=== PATIENT | female | born 1950 | race Caucasian/White ===

== ENCOUNTER 2018-04-20 13:26 | Outpatient (CLI) | payer MEDICARE ==
[~2018-04-20 13:26] MED LIST: Iopamidol 370 76% 100 ML VIAL ONE
== END 2018-04-20 13:27 | disposition home or self-care (01) ==
LOC: BICCT 13:26
PROVIDERS: ATTEND Urology
DX: R31.9 Hematuria, unspecified (principal); E11.9 Type 2 diabetes mellitus without complications; N20.0 Calculus of kidney
CPT/HCPCS: 74178

== ENCOUNTER 2018-07-20 10:26 | Outpatient (CLI) | payer MEDICARE ==
--- NOTE | 2018-07-20 11:17 | RAD ---
CERVICAL SPINE FOUR VIEWS: History: Neck pain. Comparison: 06-27-18 FINDINGS: Reversal of the normal lordotic curvature. Prominent osteophytosis. Disc space narrowing and 4 mm ret rolisthesis at the C5-6 level that does not change upon flexion or extension. Cervicothoracic junctio n is intact. IMPRESSION: Degenerative changes most pronounced at the C5-6 level. POS: [facility]
== END 2018-07-20 10:27 | disposition home or self-care (01) ==
LOC: TBSIIMAG 10:26
PROVIDERS: ATTEND Neurological Surgery
DX: M47.22 Other spondylosis with radiculopathy, cervical region (principal); M50.20 Other cervical disc displacement, unspecified cervical region
CPT/HCPCS: 72040

== ENCOUNTER 2018-07-25 05:30 | Day surgery (SDC) | payer MEDICARE ==
[2018-07-21 13:27] VITALS: BMI 31.6
[2018-07-25] MEDS ORDERED: Famotidine/PF 20 mg/2ml Vial ONE (06:15)
[2018-07-25] MEDS ORDERED: Scopolamine 1.5 mg/72 hour Patch ONE (06:16)
[2018-07-25] MEDS ORDERED: Fentanyl 100 MCG/2 ML VIAL ONE ×4 (06:16→10:41)
[2018-07-25] MEDS ORDERED: Midazolam HCl 2 mg/2 ml Vial ONE (06:16)
[2018-07-25] MEDS ORDERED: Thrombin 5000 UNITS/5 ML VIAL ONE (06:18)
[2018-07-25] MEDS ORDERED: Sodium Chloride 0.9% 10 ML ONE (06:18)
[2018-07-25] MEDS ORDERED: CEFAZOLIN 2 GM/50 ML BAG ONE ×2 (06:25→14:49)
--- NOTE | 2018-07-25 07:14 | HP ---
HISTORY OF PRESENT ILLNESS: This is a 67-year-old female who reports to our office for evaluation of neck pain with radicular symptoms. The patient states she has had a similar experience with right-sided radiculopathy in 1998 for which a foraminotomy was performed and gave her instant relief. The patient states that she feels like she has a blowtorch on her left arm. It goes from her neck behind her shoulder blade down the back of her arm to the top of her wrist. The patient states that her hand will go numb and tingly sometimes. She states the flare-ups like this happens 3 or 4 times a year, however, this is the most significant episode which started this past July. The patient states that nothing has helped her. She needs to have her head flexed forward to give any amount or relief from the pain. She has seen a massage therapist, chiropractor, and received pain medications all with little benefit, muscle relaxers, pain killers, and steroids as well. REVIEW OF SYSTEMS: A 10-point review of systems has been completed and is negative other than stated above in the HPI. PAST MEDICAL HISTORY: Diabetes type 1, skin cancer, hyperlipidemia, migraine, history of hepatitis. SURGICAL HISTORY: TVH/ ,10-pound fibroid in 2005, right hip surgery replacement in 2008, multiple neck surgeries, removal of gallbladder, cervical laminectomy in 1998. FAMILY HISTORY: Father was at 80 from lung cancer, diagnosed with heart disease and cancer. Mother was at 64 of renal cell cancer diagnosed with cancer. Children are alive. Son is alive and paternal grandfather , grandmother .. SOCIAL HISTORY: The patient is a nonsmoker and drinks alcohol occasionally. Does not use any other illicit drugs. Currently sexually active. Retired, , with 4 children. Drinks a cup of coffee a day. MEDICATIONS: Metformin, Humalog, [place] and Zofran. ALLERGIES: NO KNOWN DRUG ALLERGIES. PHYSICAL EXAMINATION: CONSTITUTIONAL: The patient is alert and oriented, does not appear to be in visible distress. HEENT: Head is normocephalic and atraumatic. Pupils are equal, round, reactive to light. Extraocular movements are intact. Hearing is intact. NECK: Soft and supple. No masses are noted. Range of motion is intact, worse with extension, tenderness in the back. NEUROLOGIC: Awake, alert, and oriented x3. Memory, attention, and fund of knowledge and language are normal. Speech is spontaneous. Cranial nerves are normal. Cranial nerves are grossly intact. EXTREMITIES: Upper extremities 5/5 strength in bilateral deltoids, biceps, wrist extensors, finger extensors, finger intrinsic and 4+/5 left triceps. Positive Spurling's on the left. Reflexes are symmetric. ASSESSMENT AND PLAN: Cervical disk disease. Dr. Rogers has offered anterior cervical discectomy and fusion. She has consented to the risks and benefits and is willing to proceed with surgery. Job ID: [id number]
[2018-07-25] MEDS ORDERED: Morphine 2 MG/ML SYRINGE ONE ×2 (11:42→11:48)
[2018-07-25] MEDS ORDERED: tiZANidine HCl 4 MG TAB ONE (12:16)
--- NOTE | 2018-07-25 12:32 | OP ---
DATE OF PROCEDURE: 07/25/2018 FAN RUNNER: Jadyn Pollard PA-C PREOPERATIVE INDICATION: Treat pain and prevent neurological deterioration. PREOPERATIVE DIAGNOSES: Left C6 radiculopathy from intervertebral disk disease and foraminal stenosis at C5-C6. POSTOPERATIVE DIAGNOSES: Left C6 radiculopathy from intervertebral disk disease and foraminal stenosis at C5-C6. PROCEDURES PERFORMED: Anterior cervical diskectomy, intervertebral arthrodesis, placement of intervertebral biomechanical device, local morselized autograft, morselized allograft, anterior cervical plating C5-C6, and operating microscope. PREOPERATIVE MEDICATIONS: Ancef 2 g IV. DRAINS: Zero. DRAIN TYPE: None. DESCRIPTION OF PROCEDURE: The patient was brought to the operating room. General endotracheal anesthesia was induced. The patient was carefully positioned supine with the head supported by a donut-shaped headrest. A lateral fluoro- radiograph was used to plan our incision. The right side of the neck was sterilely prepped and draped. We opened with a 10-blade knife and controlled bleeding with bipolar cautery. We dissected sharply to the platysma and then cut this muscle in line with our incision. We continued our dissection medial to the sternocleidomastoid and lateral to the trachea and esophagus all the way down to the prevertebral space. We placed a marker at C4-C5 and took a lateral fluoro-radiograph to confirm the levels upon which we were operating. We then counted down from there and elevated the longus colli muscles off the anterior surface of C5 and C6 and placed distraction pins in both of those vertebrae and a lateral retractor under the muscles. We incised the interspaces and removed disk contents using curettes and rongeurs. As we approached the posterior longitudinal ligament, the operating microscope was brought into the field. Under microscopic magnification and using microsurgical techniques, we removed the remainder of the intervertebral disk, the posterior longitudinal ligament, and posterior osteophytes across the entire interspace. We decompressed both neural foramina, especially the left side, where the nerve was reddened and compressed. At the completion of our decompression, there was no further neural element entrapment. We prepared the endplates for grafting with curettes and then measured the height of the interspace to 7 mm. A 7 mm PEEK graft was brought into the field. Posterior osteophytes and anterior osteophytes removed during decompression, and we carefully cleaned of soft tissue attachments, morselized, and added to demineralized bone matrix as our fusion substrate. The substrate was packed into the PEEK graft and then the graft advanced into the interspace under radiographic guidance to the appropriate depth. We then removed the operating microscope. A 14-mm anterior cervical plate was brought into the field. We drilled airplane pilot commercial holes through the plate into the vertebral bodies at C5 and C6 and affixed the plate using 14 mm screws. Fixed angle screws were used at C6 and variable angle screws at C5. We engaged the locking mechanism over each of the 4 screws. AP and lateral fluoro-radiographs confirmed adequate positioning of our instrumentation. We irrigated copiously with bacitracin irrigation. We closed the wound in anatomical layers and we applied a sterile dressing. This was a clean case with no contamination. Job ID: [id number] [facility]
[2018-07-25] MEDS ORDERED: HYDROcodone/Acetaminophen 10/325 mg Tablet ONE (12:34)
[2018-07-25] MEDS ORDERED: diphenhydrAMINE 50 MG/ML VIAL ONE (13:27)
[2018-07-25] MEDS ORDERED: Sodium Chloride 0.9% 100 ML ONE (14:54)
[2018-07-25] MEDS ORDERED: CEFAZOLIN 1 GM VIAL ONE (14:54)
--- NOTE | 2018-07-25 17:53 | EKG ---
Test Reason : PREOP Blood Pressure : / mmHG Vent. Rate : 106 BPM Atrial Rate : 106 BPM P-R Int : 160 ms QRS Dur : 088 ms QT Int : 348 ms P-R-T Axes : 054 -03 060 degrees QTc Int : 462 ms Sinus tachycardia Low voltage QRS Borderline ECG No previous ECGs available Confirmed by QUIQUE MCCULLOUGH ([id number]) on 07/25/2018 5:53:02 PM Referred By: KORY Confirmed By:QUIQUE MCCULLOUGH
== END 2018-07-25 15:35 | disposition home or self-care (01) ==
LOC: SDC 05:30
PROVIDERS: ATTEND Neurological Surgery
PROC: 0RG10A0 Fusion of Cervical Vertebral Joint with Interbody Fusion Device, Anterior Approach, Anterior Column, Open Approach (ICD-10-PCS; principal; 2018-07-25)
PROC: 0RT30ZZ Resection of Cervical Vertebral Disc, Open Approach (ICD-10-PCS; 2018-07-25)
DX: M50.122 Cervical disc disorder at C5-C6 level with radiculopathy (principal); M43.12 Spondylolisthesis, cervical region; M48.061 Spinal stenosis, lumbar region without neurogenic claudication; E11.9 Type 2 diabetes mellitus without complications; E78.5 Hyperlipidemia, unspecified; G43.909 Migraine, unspecified, not intractable, without status migrainosus; Z79.4 Long term (current) use of insulin; Z79.82 Long term (current) use of aspirin; Z79.899 Other long term (current) drug therapy
CPT/HCPCS: 36416; 76001; 93005; 93010; 96374; 96375; C1713; C1776; J0690; J1200; J2001; J2250; J2270; J2405; J2704; J3010; J3490; J7050; L0174; S0028

== ENCOUNTER 2018-08-18 11:53 | Outpatient (CLI) | payer MEDICARE ==
--- NOTE | 2018-08-18 13:30 | RAD ---
KUB: Comparison: None. History: Renal calculi. FINDINGS: Single view of the abdomen shows a nonspecific, nonobstructed bowel gas pattern. There is a 13 mm yanna cification projecting over the mid to upper portion of the right kidney. No calcification projects ov er the left renal shadow or along the course of the ureters. Phleboliths are seen in the pelvis. IMPRESSION: Right nephrolithiasis. POS: [facility]
== END 2018-08-18 11:54 | disposition home or self-care (01) ==
LOC: RAD 11:53
PROVIDERS: ATTEND Urology
DX: N20.0 Calculus of kidney (principal)
CPT/HCPCS: 74018

== ENCOUNTER 2018-09-18 13:00 | Outpatient (CLI) | payer MEDICARE ==
--- NOTE | 2018-09-18 14:12 | RAD ---
THREE VIEWS CERVICAL SPINE: Comparison: 07-20-18 History: Cervical radiculopathy. FINDINGS: Three views of the cervical spine shows the patient to be status post anterior fusion of C5 and C6 wi th a plate and screws. Disc spacer is seen within the disc space. No perihardware lucency is seen. Ve rtebral bodies demonstrate normal alignment without subluxation. Small osteophytes are seen surroundi ng the C4-5 intervertebral disc. IMPRESSION: Post-surgical changes of the cervical spine without evidence of complication. POS: [facility]
--- NOTE | 2018-09-18 15:50 | RAD ---
LUMBAR SPINE RADIOGRAPHS 2 VIEWS: DATE: 09/18/2018. PROVIDED CLINICAL HISTORY: Back pain. FINDINGS: No comparisons. Five isq-fvf-srvsbh-type vertebral bodies are present. Lumbar alignment appears nor mal. Vertebral body heights appear preserved. Mild disk space narrowing at L3-4. Multilevel lower lumbar spine facet degenerative changes. Pedicles appear intact. Approximately 1.4 cm ovoid density overlies the inferior pole right renal shadow likely reflecting calculus. IMPRESSION: 1. Lower lumbar spine facet arthritis. 2. Right renal calculus. POS: [facility]
--- NOTE | 2018-09-18 15:56 | RAD ---
THREE VIEWS THORACIC SPINE: HISTORY: Fall with back pain. FINDINGS: AP, lateral, and swimmer's view thoracic spine demonstrate ACDF with lower cervical fusion involving the C5-6 level. Small anterior osteophytes are seen throughout the thoracic spine. Vertebral bodies were unremarkable. No evidence of acute thoracic spine fractures or bony lesions se en. IMPRESSION: Anterior thoracic spine osteophytes with no evidence of acute fractures or bony lesions seen. POS: [facility]
== END 2018-09-18 13:01 | disposition home or self-care (01) ==
LOC: TBSIIMAG 13:00
PROVIDERS: ATTEND Neurological Surgery
DX: S33.5XXA Sprain of ligaments of lumbar spine, initial encounter (principal); S23.3XXA Sprain of ligaments of thoracic spine, initial encounter; M54.12 Radiculopathy, cervical region; M47.816 Spondylosis without myelopathy or radiculopathy, lumbar region; N20.0 Calculus of kidney; Z98.890 Other specified postprocedural states
CPT/HCPCS: 72040; 72070; 72100

== ENCOUNTER 2018-12-26 12:59 | Outpatient (CLI) | payer MEDICARE ==
--- NOTE | 2018-12-26 14:24 | RAD ---
CERVICAL SPINE, FOUR VIEWS: 12/26/18 HISTORY: Cervical radiculopathy. COMPARISON: 09/18/18. Anterior plate and screws again noted transfixing C5-6 with interbody implant. Hardware is unchanged in position. Degenerative changes are noted. Anterior bridging osteophyte at C4-5 with mild loss of d isc space. Mild loss of disc space with anterior osteophyte at C6-7. These findings are all stable. P osterior alignment is unchanged. IMPRESSION: Postoperative and degenerative changes of the cervical spine appears stable from prior exam. POS: [facility]
== END 2018-12-26 13:00 | disposition home or self-care (01) ==
LOC: TBSIIMAG 12:59
PROVIDERS: ATTEND Neurological Surgery
DX: M47.26 Other spondylosis with radiculopathy, lumbar region (principal); Z98.890 Other specified postprocedural states
CPT/HCPCS: 72040

== ENCOUNTER 2019-03-19 09:41 | Outpatient (CLI) | payer MEDICARE ==
--- NOTE | 2019-03-19 10:21 | RAD ---
EXAM: XR Abdomen 1 View/KUB PROVIDED CLINICAL HISTORY: Nephrolithiasis. COMPARISON: 08/18/2018. FINDINGS: Surgical clips overlie the right upper quadrant. Previously noted calculus overlying the midportion right renal shadow is again seen measuring 16 mm o n today's exam suggesting right renal calculus. No suspicious calcifications are seen overlying the left renal shadow or along the expected courses of each ureter to suggest additional calculi. Phlebol iths overlie the pelvis. Nonspecific bowel gas pattern is present. Degenerative changes noted spine. Right total hip prosthesi s again present. IMPRESSION: Right nephrolithiasis.
== END 2019-03-19 09:42 | disposition home or self-care (01) ==
LOC: BICRAD 09:41
PROVIDERS: ATTEND Urology
DX: N20.0 Calculus of kidney (principal)
CPT/HCPCS: 36415; 74018; 80048; 80061; 80076; 81001; 87086

== ENCOUNTER 2019-05-29 09:17 | Outpatient (CLI) | payer MEDICARE ==
[2019-05-29 11:58] LABS: Hemoglobin 15.5 g/dL (12.0-16.0); Mean Corpuscular HGB CONC 32.5 g/dL (32.0-36.0); Mean Corpuscular Hemoglobin 29.8 pg (27.0-31.0); Mean Corpuscular Volume 91.5 fL (78.0-98.0); Mean Platelet Volume 7.5 fL (7.4-10.4); Platelet Count 302 thou/uL (130-400); RBC Distribution Width 12.8 % (11.5-14.5); Red Blood Cell (RBC) Count 5.21 mill/uL (4.20-5.40); White Blood Cell (WBC) Count 8.3 thou/uL (4.8-10.8)
[2019-05-29 12:02] LABS: Bacteria/HPF None Seen HPF (None Seen); Bilirubin Negative (Negative); Blood, Urine Trace (Negative); Clarity Clear (Clear); Glucose, Urine (Dipstick) 30 mg/dL (Negative); Leukocyte 250 Leu/uL (Negative); Mucous/LPF 1+ LPF (<2+); Nitrite Negative (Negative); PTT 29.1 SEC (22.9-36.1); Protein, Urine (Dipstick) 70 mg/dL (Neg-Trace); Prothrombin Time 12.9 SEC (12.0-14.7); Urobilinogen Normal mg/dL (Less than 2); WBC/HPF 21-50 HPF (0-3)
[2019-05-29 12:27] LABS: Anion Gap 13 mmol/L (10-20); BUN (Urea Nitrogen) 8 mg/dL (9.8-20.1); Calc. Creatinine Clearance 0 mL/min (70-130); Calcium 9.7 mg/dL (7.8-10.44); Carbon Dioxide 27 mmol/L (23-31); Chloride 102 mmol/L (98-107); Estimated GFR-MDRD 72; Glucose 159 mg/dL (80-115); Potassium 3.9 mmol/L (3.5-5.1); Sodium 138 mmol/L (136-145)
--- NOTE | 2019-06-01 10:09 | EKG ---
Test Reason : Blood Pressure : / mmHG Vent. Rate : 083 BPM Atrial Rate : 083 BPM P-R Int : 160 ms QRS Dur : 082 ms QT Int : 376 ms P-R-T Axes : 075 026 075 degrees QTc Int : 441 ms Normal sinus rhythm with sinus arrhythmia Low voltage QRS Borderline ECG When compared with ECG of 25-JUL-2018 06:37, No significant change was found Confirmed by GLENROY ROSAS, LORRI ([id number]) on 06/01/2019 10:08:34 AM Referred By: ONIEL Confirmed By:LORRI TIM MD
== END 2019-05-29 09:18 | disposition home or self-care (01) ==
LOC: LABBT 09:17
PROVIDERS: ATTEND Urology
DX: Z01.818 Encounter for other preprocedural examination (principal); N20.0 Calculus of kidney; N39.41 Urge incontinence; E11.65 Type 2 diabetes mellitus with hyperglycemia; R55 Syncope and collapse
CPT/HCPCS: 80048; 81001; 85027; 85610; 85730; 87086; 93005; 93010

== ENCOUNTER 2019-06-06 05:43 | Day surgery (SDC) | payer MEDICARE ==
[2019-05-29 09:53] VITALS: BMI 33.4
[2019-06-06] MEDS ORDERED: Levofloxacin 500 mg/D5W 100 ml Premix Bag ONE (06:16)
[2019-06-06] MEDS ORDERED: Midazolam HCl 2 mg/2 ml Vial ONE (07:12)
[2019-06-06] MEDS ORDERED: Fentanyl 100 MCG/2 ML VIAL ONE (07:12)
[2019-06-06] MEDS ORDERED: Iothalamate Meglumine 60% 50 ML VIAL FS ONE (07:15)
--- NOTE | 2019-06-06 08:14 | RAD ---
Exam: Intraprocedure fluoroscopy for retrograde IVP HISTORY: Stone manipulation. Right stent FINDINGS: 3 fluoroscopic views demonstrate calculus projecting over the right renal silhouette. Retro grade opacification the right intrarenal and extra renal collecting system. Wire for stent placement is identified on the last image. IMPRESSION: Intraprocedure fluoroscopy as above.
--- NOTE | 2019-06-06 09:33 | RAD ---
FRONTAL VIEW ABDOMEN: INDICATIONS: Preoperative evaluation. Nephrolithiasis. COMPARISON: Radiograph from 03/19/2019 and fluoroscopic imaging from 06/06/2019. FINDINGS: There is a moderate sized calcific density again seen overlying the right renal shadow. The finding i s grossly stable. The bowel gas pattern is non-obstructed. IMPRESSION: Persistent moderate sized calcification overlying the right renal shadow. POS: [facility]
[2019-06-06] MEDS ORDERED: Phenazopyridine HCl 97.5 MG TABLET ONE ×2 (09:35)
[2019-06-06] MEDS ORDERED: Oxybutynin 5 MG TAB ONE (09:36)
[2019-06-06] MEDS ORDERED: Promethazine HCl 25 MG/ML VIAL ONE (09:48)
--- NOTE | 2019-06-06 10:17 | OP ---
DATE OF PROCEDURE: 06/06/2019 PRIMARY CARE PHYSICIAN: Eleni Araujo MD PREOPERATIVE DIAGNOSIS: A 68-year-old female with history of 1.5 cm right upper pole stone. POSTOPERATIVE DIAGNOSIS: A 68-year-old female with history of 1.5 cm right upper pole stone. PROCEDURES PERFORMED: Cystoscopy, right retrograde pyelogram, dilation of right intramural ureter, 6 x 26 double-J ureteral stent with distal tail in situ, flexible ureteroscopy, pyeloscopy, laser lithotripsy of large right upper pole stone, basket extraction of stone fragments. ANESTHESIA: General. COMPLICATIONS: None apparent. ESTIMATED BLOOD LOSS: Minimal. IV FLUIDS: About 1 L. SPECIMENS: For stone analysis. INDICATION FOR PROCEDURE: Ms. Blackwell is a 68-year-old female, who presented for evaluation of history of microscopic hematuria. Workup demonstrated a large right upper pole renal stone measuring 1.5 x 1.0 cm with Hounsfield density over 1000. I discussed with the patient regarding various treatment options including ESWL, ureteroscopy, PCNL. She has chosen ureteroscopy, laser lithotripsy. Relative stone-free rates and risks and complications of each modality were reviewed. Possible secondary procedure was also reviewed given stone size, density, and moiety. DESCRIPTION OF PROCEDURE: After an informed consent was signed, the patient was taken to the operating room, placed in a dorsal lithotomy position with the genital area prepped and draped in the usual surgical sterile fashion. A 21-Welsh cystoscope was utilized for cystoscopy, which demonstrated normal urethra and bladder was unremarkable. The UOs identified in normal orthotopic position. We intubated the right UO with an open-ended catheter, and a retrograde pyelogram was performed demonstrating the stone in the right upper pole. At this time, a 0.35 Sensor wire was placed in the right upper pole and using a [employer] 12-Welsh 4 cm balloon dilator, we dilated the intramural ureter, and proximal ureter in 2 segments. This was performed under fluoroscopic guidance. After adequate dilatation, we passed a 10-Welsh dual-lumen access sheath, which was able to be passed into the right proximal ureter. A 0.35 Super Stiff wire was then placed into the right upper pole for working wire. With the safety wire secured, we passed an 11/13-Welsh x 28 cm navigator. We negotiated this carefully, atraumatically to the level of the proximal ureter, and subsequently, passed the flexible ureteroscope under guidewire assist. Surveying of the collecting system demonstrated a large right upper pole and using 250 micron ball-tip fiber at 1.0 joules, we laser lithotripsied the stone into multiple tiny fragments. It took some time, given stone size and density; however, the stone was dusted. We basket extracted some fragments to chemically analyze. At the end of the procedure, what remained was minute punctate stone debris that which she will most likely pass. We surveyed the collecting system demonstrating no further stone nidus, the ureter was surveyed which demonstrated no evidence of ureteral mucosa trauma. The navigator was completely removed and a 6 x 26 double-J ureteral stent was passed without difficulty. Distal tail was left in situ and all wires were removed. Bladder was completely emptied and she tolerated the procedure well. She will follow up with me next at 8 a.m. She is instructed to have KUB the day before June 13 at 9 a.m.; if no significant stone burden of concern, we will remove her stent the day after on . She is discharged with ciprofloxacin for course of 10 days, Azo p.r.n., Colace p.r.n., tramadol 50 mg #30, KUB and x-ray prescription orders provided. Job ID: [id number]
== END 2019-06-06 12:10 | disposition home or self-care (01) ==
LOC: SDC 05:43
PROVIDERS: ATTEND Urology
PROC: 0TF38ZZ Fragmentation in Right Kidney Pelvis, Via Natural or Artificial Opening Endoscopic (ICD-10-PCS; principal; 2019-06-06)
PROC: 0T768DZ Dilation of Right Ureter with Intraluminal Device, Via Natural or Artificial Opening Endoscopic (ICD-10-PCS; 2019-06-06)
DX: N20.0 Calculus of kidney (principal); E11.9 Type 2 diabetes mellitus without complications; G43.909 Migraine, unspecified, not intractable, without status migrainosus; N39.41 Urge incontinence; R55 Syncope and collapse; Z79.4 Long term (current) use of insulin; Z79.899 Other long term (current) drug therapy; Z98.1 Arthrodesis status
CPT/HCPCS: 36416; 74018; 74420; 82365; 88300; C1758; C1769; J1956; J2250; J2550; J3010

== ENCOUNTER 2019-06-13 11:32 | Outpatient (CLI) | payer MEDICARE ==
--- NOTE | 2019-06-13 11:59 | RAD ---
Exam: Abdomen one view: HISTORY: Nephrolithiasis COMPARISON: 06/06/2019 FINDINGS: Right ureteral stent in place. The previously noted right renal calculus is no longer evident. IMPRESSION: Right ureteral stent in place. Large right renal calculus seen on the prior study is no longer eviden t.
== END 2019-06-13 11:33 | disposition home or self-care (01) ==
LOC: BICRAD 11:32
PROVIDERS: ATTEND Urology
DX: N20.0 Calculus of kidney (principal); Z96.0 Presence of urogenital implants
CPT/HCPCS: 74018

== ENCOUNTER 2019-07-11 12:47 | Outpatient (CLI) | payer MEDICARE ==
--- NOTE | 2019-07-11 11:40 | MMO ---
Bilateral MAMMO Bilat Screen [facility]. CLINICAL HISTORY: Patient is 68 years old and is seen for screening. The patient has no family history of breast cancer. The patient has no personal history of cancer. VIEWS: The views performed were: bilateral craniocaudal with tomosynthesis and bilateral mediolateral oblique with tomosynthesis. This study has been interpreted with the assistance of computer-aided detection. MAMMOGRAM FINDINGS: There are scattered fibroglandular densities. There are benign appearing calcifications seen in both breasts. There are no suspicious masses, calcifications or areas of architectural distortion. There are no suspicious masses, suspicious calcifications, or new areas of architectural distortion. IMPRESSION: THERE IS NO MAMMOGRAPHIC EVIDENCE OF MALIGNANCY. A ROUTINE FOLLOW-UP MAMMOGRAM IN 1 YEAR IS RECOMMENDED. THE RESULTS OF THIS EXAM WERE SENT TO THE PATIENT. ACR BI-RADS Category 2 - Benign finding MAMMOGRAPHY NOTE: 1. A negative mammogram report should not delay a biopsy if a dominant of clinically suspicious mass is present. 2. Approximately 10% to 15% of breast cancers are not detected by mammography. 3. Adenosis and dense breasts may obscure an underlying neoplasm. Reported by: BARBARA YUAN MD Electonically Signed: [id number]
== END 2019-07-11 12:48 | disposition home or self-care (01) ==
LOC: BICMAMMO 12:47
PROVIDERS: ATTEND Family Medicine
DX: Z12.31 Encounter for screening mammogram for malignant neoplasm of breast (principal)
CPT/HCPCS: 77063; 77067

== ENCOUNTER 2019-09-20 08:15 | Outpatient (CLI) | payer MEDICARE ==
--- NOTE | 2019-09-20 09:08 | ULT ---
BILATERAL RENAL ULTRASOUND: Date: 09/20/2019 HISTORY: Renal calculus. FINDINGS: The right kidney measures 11.4 cm in length and the left kidney measures 11.1 cm in length. No focal mass or hydronephrosis is seen. No shadowing calculus identified. The urinary bladder is not visualiz ed, likely due to incomplete distention. IMPRESSION: No sonographic evidence of renal calculus or high grade obstruction. POS: [facility]
--- NOTE | 2019-09-20 09:09 | RAD ---
KUB: HISTORY: Kidney stones. COMPARISON: 06/13/2019 exam. The bowel gas pattern is nonobstructive. Right ureteral stent which was noted on the previous study has been removed. I do not appreciate any definite ureteral calculi. On one of these projections, t here is a suggestion of a faint calcification in the region of the lower pole of the right kidney. P ostop9 cholecystectomy changes are seen. IMPRESSION: Questionable small faint lower pole right renal calculus. POS: [facility]
== END 2019-09-20 08:16 | disposition home or self-care (01) ==
LOC: BICULT 08:15
PROVIDERS: ATTEND Urology
DX: N20.0 Calculus of kidney (principal)
CPT/HCPCS: 36415; 74018; 76770; 80048; 81001; 87086

== ENCOUNTER 2022-01-15 11:31 | Outpatient (CLI) | payer MEDICARE ==
[2022-01-15 13:26] LABS: Hemoglobin 14.5 g/dL (12.0-15.5); Mean Corpuscular HGB CONC 33.4 g/dL (32.0-36.0); Mean Corpuscular Hemoglobin 29.4 pg (27.0-33.0); Mean Corpuscular Volume 87.9 fl (81.6-98.3); Mean Platelet Volume 9.6 fl (7.4-10.4); Platelet Count 303 10x3/uL (150-450); RBC Distribution Width 13.9 % (11.5-14.5); Red Blood Cell (RBC) Count 4.94 10x6/uL (3.90-5.03); White Blood Cell (WBC) Count 7.4 10x3/uL (3.5-10.5)
[2022-01-15 13:38] LABS: Anion Gap 15 mmol/L (10-20); BUN (Urea Nitrogen) 10 mg/dL (9.8-20.1); Calc. Creatinine Clearance 0 mL/min (70-130); Calcium 9.4 mg/dL (7.8-10.44); Carbon Dioxide 27 mmol/L (23-31); Chloride 101 mmol/L (98-107); Glucose 184 mg/dL (83-110); Potassium 4.1 mmol/L (3.5-5.1); Sodium 139 mmol/L (136-145)
[2022-01-15 13:52] LABS: PTT 24.2 sec (22.0-33.0); Prothrombin Time 10.6 sec (9.5-12.1)
== END 2022-01-15 11:32 | disposition home or self-care (01) ==
LOC: LABBT 11:31
PROVIDERS: ATTEND Urology
DX: Z01.818 Encounter for other preprocedural examination (principal); N20.0 Calculus of kidney; N39.41 Urge incontinence; R55 Syncope and collapse; E11.65 Type 2 diabetes mellitus with hyperglycemia; Z20.822 Contact with and (suspected) exposure to COVID-19
CPT/HCPCS: 80048; 85027; 85610; 85730; 93005; U0003; U0005; 93010

== ENCOUNTER 2022-01-20 07:25 | Day surgery (SDC) | payer MEDICARE ==
[2022-01-18 13:35] VITALS: BMI 31.0
[2022-01-20] MEDS ORDERED: fentaNYL Citrate/PF 100 MCG/2 ML SYRINGE ONE (08:16)
[2022-01-20] MEDS ORDERED: HYDROmorphone 0.5 MG/0.5 ML SYRINGE ONE (08:17)
[2022-01-20] MEDS ORDERED: Levofloxacin 500 mg/D5W 100 ml Premix Bag ONE (08:20)
[2022-01-20] MEDS ORDERED: Iopamidol 45 ML ONE (09:29)
[2022-01-20] MEDS ORDERED: SUGAMMADEX SODIUM 200 MG/2 ML VIAL ONE (09:39)
[2022-01-20] MEDS ORDERED: Midazolam HCl 2 mg/2 ml Vial ONE (09:51)
[2022-01-20] MEDS ORDERED: Phenazopyridine HCl 100 MG TAB ONE ×2 (12:05→12:08)
[2022-01-20] MEDS ORDERED: Tamsulosin HCl 0.4 MG CAP ONE (12:08)
[2022-01-20] MEDS ORDERED: Oxybutynin 5 MG TAB ONE (12:12)
== END 2022-01-20 12:23 | disposition home or self-care (01) ==
LOC: SDC 07:25
PROVIDERS: ATTEND Urology
PROC: 0TC68ZZ Extirpation of Matter from Right Ureter, Via Natural or Artificial Opening Endoscopic (ICD-10-PCS; principal; 2022-01-20)
PROC: 0T768DZ Dilation of Right Ureter with Intraluminal Device, Via Natural or Artificial Opening Endoscopic (ICD-10-PCS; 2022-01-20)
DX: N20.1 Calculus of ureter (principal); E11.9 Type 2 diabetes mellitus without complications; N39.41 Urge incontinence; E78.5 Hyperlipidemia, unspecified; Z79.4 Long term (current) use of insulin; Z79.899 Other long term (current) drug therapy; Z88.5 Allergy status to narcotic agent; Z98.1 Arthrodesis status; Z96.41 Presence of insulin pump (external) (internal)
CPT/HCPCS: 52356; 74018; 74420; C2617; J1170; J1956; J2250; Q9967

== ENCOUNTER 2022-10-20 08:48 | Outpatient (CLI) | payer MEDICARE | END 2022-10-20 08:49 | disposition home or self-care (01) | LOC: BICRAD 08:48 | PROVIDERS: ATTEND Urology | DX: N20.0 Calculus of kidney (principal) | CPT/HCPCS: 74018 ==

== ENCOUNTER 2022-11-09 13:16 | Outpatient (CLI) | payer MEDICARE | END 2022-11-09 13:17 | disposition home or self-care (01) | LOC: BICRAD 13:16 | PROVIDERS: ATTEND Nurse Practitioner Family | DX: M25.551 Pain in right hip (principal); M25.552 Pain in left hip; M16.12 Unilateral primary osteoarthritis, left hip; Z96.641 Presence of right artificial hip joint ==

== ENCOUNTER 2023-04-21 08:39 | Outpatient (CLI) | payer MEDICARE | END 2023-04-21 08:40 | disposition home or self-care (01) | LOC: BICMAMMO 08:39 | PROVIDERS: ATTEND Nurse Practitioner Family | DX: Z12.31 Encounter for screening mammogram for malignant neoplasm of breast (principal) | CPT/HCPCS: 77063; 77067 ==

== ENCOUNTER 2024-05-22 09:30 | Outpatient (CLI) | payer MEDICARE | END 2024-05-22 09:31 | disposition home or self-care (01) | LOC: BICMAMMO 09:30 | PROVIDERS: ATTEND Family Medicine | DX: Z12.31 Encounter for screening mammogram for malignant neoplasm of breast (principal); Z78.0 Asymptomatic menopausal state; M85.832 Other specified disorders of bone density and structure, left forearm; Z91.89 Other specified personal risk factors, not elsewhere classified | CPT/HCPCS: 77063; 77067; 77080 ==